=== PATIENT | female | born 1945 | race Hispanic/Latino ===

== ENCOUNTER 2018-01-01 09:40 | Emergency (ER) | payer MEDICARE ==
[2018-01-01] MEDS ORDERED: IBUPROFEN 100 MG/5 ML SUSP UDCUP ONE (10:26)
[2018-01-01] MEDS ORDERED: FENTANYL CITRATE PF 50 MCG/1 ML 2ML VIAL ONE (10:27)
[2018-01-01] MEDS ORDERED: DiphenhydrAMINE HCL 25 MG/10 ML ELIXIR UDCUP ONE (11:03)
== END 2018-01-01 12:24 | disposition home or self-care (01) ==
LOC: EDH 09:40
DX: S60.561A Insect bite (nonvenomous) of right hand, initial encounter (principal); Z86.73 Personal history of transient ischemic attack (TIA), and cerebral infarction without residual deficits; Z87.891 Personal history of nicotine dependence; W57.XXXA Bitten or stung by nonvenomous insect and other nonvenomous arthropods, initial encounter; Y93.89 Activity, other specified; Y92.89 Other specified places as the place of occurrence of the external cause; Y99.8 Other external cause status
CPT/HCPCS: 96372; 99283; J3010

== ENCOUNTER → 2018-06-28 | Outpatient (CLI) | payer MEDICARE ==
--- NOTE | 2018-06-28 10:30 | NUR ---
MBSS COMPLETED. +S/S OF ASPIRATION WITH THIN LIQUIDS AND DEEP PENETRATION WITH NECTAR-THICK LIQUIDS. RECOMMEND MECHANICAL SOFT/GROUND, HONEY-THICK LIQUIDS; PILLS CRUSHED WITH APPLESAUCE. PATIENT INFORMATION: Pt IS A 72 YEAR OLD FEMALE REFERRED FOR AN MBSS SECONDARY TO DISLODGING OF PEG TUBE WITH HISTORY OF DYSPHAGIA ON MODIFIED DIET. Pt AAOX3 AND SERVED THE PRIMARY INFORMANT FOR MEDICAL AND SOCIAL HISTORY. Pt REPORTS THAT SHE ACCIDENTLY PULLED OUT PEG TUBE DAYS AGO, BUT WAS ALREADY EATING BY MOUTH FOR A FEW MONTHS ON A PUREED, HONEY-THICK LIQUID DIET. SHE WAS ONLY PUTTING MEDICATIONS DOWN THE PEG TUBE. 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 RESULTING IN SILENT ASPIRATION WITH THIN LIQUIDS, DEEP PENETRATION WITH NECTAR-THICK LIQUIDS (NO COUGHING). S/S OF ASPIRATION OBSERVED: WATERY EYES, RUNNY NOSE, AND THROAT CLEAR. TRIALS: 1. TSP PUREED: STASIS IN PHARYNX CLEARED WITH RE-SWALLOW AND LIQUID WASH 2. TSP THIN LIQUIDS: ASPIRATION 3. TSP MIXED: GOOD 4. COOKIE: GOOD 5. TSP NECTAR-THICK LIQUIDS: DEEP PENETRATION 6. TSP HONEY-THICK LIQUIDS: GOOD 7. CUP SIP HONEY-THICK LIQUIDS: GOOD RECOMMENDATIONS: 1. MECHANICAL SOFT/GROUND, HONEY-THICK LIQUIDS; PILLS CRUSHED WITH APPLESAUCE. 2. COMPENSATORY STRATEGIES: *SEATED AT 90 DEGREES *SLOW RATE *ALTERNATE BITES AND SIPS *REMAIN UPRIGHT 30 MINUTES AFTER THE MEAL 3. SKILLED SPEECH THERAPY IS RECOMMENDED 2-4XWEEK TARGETING AFOREMENTIONED WEAKNESSES. INFORMATION SYSTEMS ARCHITECT EDUCATED Pt ON RISKS AND CONSEQUENCES OF ASPIRATION. INFORMATION SYSTEMS ARCHITECT DEMONSTRATED HOW TO REACH HONEY-THICK LIQUIDS. SHE VERBALIZED UNDERSTANDING AND COMPLIANCE WITH RECOMMENDATIONS. G-CODES SWALLOWING: [id number] Addendum: 06/29/18 at 0915 by DANIELITO ROBINS, [address] Amended: Links added.
== END | disposition home or self-care (01) ==
LOC: RAH 09:22
PROVIDERS: ATTEND Internal Medicine Gastroenterology
DX: K21.9 Gastro-esophageal reflux disease without esophagitis (principal)
CPT/HCPCS: G8996; G8997; G8998; 74230; 92611

== ENCOUNTER 2019-12-30 10:44 | Emergency (ER) | payer MEDICARE ==
[2019-12-30] MEDS ORDERED: ACETAMINOPHEN 325 MG TAB ONE (13:34)
== END 2019-12-30 14:21 | disposition home or self-care (01) ==
LOC: EDH 10:44
DX: S52.592A Other fractures of lower end of left radius, initial encounter for closed fracture (principal); S52.612A Displaced fracture of left ulna styloid process, initial encounter for closed fracture; E78.00 Pure hypercholesterolemia, unspecified; F31.9 Bipolar disorder, unspecified; W18.39XA Other fall on same level, initial encounter; Y93.01 Activity, walking, marching and hiking; Y92.89 Other specified places as the place of occurrence of the external cause; Y99.8 Other external cause status
CPT/HCPCS: 29125; 70450; 73110

== ENCOUNTER → 2023-05-11 | Outpatient (CLI) | payer MEDICARE | END | disposition home or self-care (01) | LOC: SHCH 09:28 | PROVIDERS: ATTEND Internal Medicine Cardiovascular Disease | DX: R94.31 Abnormal electrocardiogram [ECG] [EKG] (principal); I10 Essential (primary) hypertension | CPT/HCPCS: 93306 ==

== ENCOUNTER 2023-09-30 08:27 | Day surgery (SDC) | payer MEDICARE ==
[2023-09-27 09:33] LABS: BASOPHILS # (AUTO) 0.07 K/uL (0.00-0.20); EOSINOPHILS # (AUTO) 0.32 K/uL (0.00-0.70); EOSINOPHILS % (AUTO) 4.4 % (0.0-8.0); HEMATOCRIT 39.7 % (36-48); IMMATURE GRANULOCYTE ABSOLUTE 0.01 K/uL (0-1); LYMPHOCYTES # (AUTO) 3.4 K/uL (1.0-4.8); LYMPHOCYTES % (AUTO) 46.5 % (21.0-51.0); MEAN CORPUSCULAR HEMOGLOBIN 29.1 pg (27.0-33.0); MEAN CORPUSCULAR HGB CONC 31.2 g/dL (32.0-36.0); MEAN CORPUSCULAR VOLUME 93.2 fL (79-99); MONOCYTES # (AUTO) 0.6 K/uL (0.1-1.0); MONOCYTES % (AUTO) 7.8 % (3.0-13.0); NEUTROPHILS # (AUTO) 2.9 K/uL (1.8-7.7); NEUTROPHILS % (AUTO) 40.2 % (40.0-77.0); PLATELET COUNT (AUTO) 266 K/uL (130-400); RED BLOOD CELL COUNT(AUTO) 4.26 MIL/uL (4.00-5.50); RED CELL DISTRIBUTION WIDTH 15.1 % (11.0-15.5); WHITE BLOOD COUNT (AUTO) 7.3 K/uL (4.8-10.8)
[2023-09-27 09:37] VITALS: BP 148/61; PULSE 66; RESP 16
[2023-09-27 09:42] LABS: CREATININE 0.8 mg/dL (0.5-1.5); POTASSIUM 4.7 mmol/L (3.5-5.1)
[~2023-09-30] VITALS: Ht 157.5 cm; Wt 64.0 kg
[2023-09-30] VITALS (19 sets, daily range): BP systolic 131–169; BP diastolic 51–78; PULSE 63–76; RESP 8–18
[~2023-09-30 08:27] MED LIST: ALEN70TA80 PO; ALPR1TAB7 PO; LAMO25TA3 PO; LEVO75TA10 PO; LOSA100T59 PO; MEMA5TAB42 PO; PRAV40TA3 PO; VILA40TA2 PO
[2023-09-30] MEDS: LACTATED RINGERS 1000ML 1,000 ML IV ONE (09:28)
[2023-09-30] MEDS: CEFAZOLIN SODIUM 2 GM VIAL ONE (09:28)
[2023-09-30] MEDS ORDERED: FENTANYL CITRATE PF 50 MCG/1 ML 2ML VIAL ONE (09:46)
[2023-09-30] MEDS ORDERED: PROPOFOL 10 MG/ML 20ML VIAL IV ONE (09:46)
[2023-09-30] MEDS ORDERED: MIDAZOLAM HCL 1 MG/ML 2ML VIAL ONE (09:46)
[2023-09-30] MEDS ORDERED: LIDOCAINE PF 100MG/5ML (2%) SYRINGE 5ML ONE (09:46)
[2023-09-30] MEDS ORDERED: BUPIVACAINE/PF 0.25% 30ML VIAL IJ ONE (10:26)
[2023-09-30] MEDS ORDERED: ONDANSETRON 4MG INJ ONE (10:30)
[2023-09-30] MEDS ORDERED: DEXAMETHASONE SOD PHOSPHATE 10MG/ML 1ML VIAL ONE (10:30)
[2023-09-30] MEDS: BUPIVACAINE/PF 0.25% 30ML VIAL IJ ONE (10:34)
[2023-09-30] MEDS: LIDOCAINE HCL 1% 20 ML VIAL ONE (10:34)
[2023-09-30] MEDS ORDERED: KETOROLAC 30MG VIAL (30MG/ML) ONE (10:41)
== END 2023-09-30 13:30 | disposition home or self-care (01) ==
LOC: DAH 08:27
PROVIDERS: ATTEND Student in an Organized Health Care Education/Training Program
DX: R22.2 Localized swelling, mass and lump, trunk (principal); D36.7 Benign neoplasm of other specified sites; M79.89 Other specified soft tissue disorders; I10 Essential (primary) hypertension; F32.A Depression, unspecified; F41.9 Anxiety disorder, unspecified; Z82.3 Family history of stroke; Z87.891 Personal history of nicotine dependence; Z79.899 Other long term (current) drug therapy; Z98.890 Other specified postprocedural states
CPT/HCPCS: 80048; 85025; 36415; 21931; 88305; A6260; A4663; J7120 ×2; J3010; J1100; J0665; J2001; J2250; J2704; J2405; J1885; J0690; A4930; A4215; A4223; A4222; A4221; A4600; G0168; J3490

== ENCOUNTER → 2024-01-21 | Outpatient (CLI) | payer MEDICARE ==
[~2024-01-21] MED LIST changes: +MEMA5TAB16 PO; -MEMA5TAB42 PO
== END | disposition home or self-care (01) ==
LOC: SHCH 08:39
PROVIDERS: ATTEND Surgery
DX: I08.2 Rheumatic disorders of both aortic and tricuspid valves (principal); I25.10 Atherosclerotic heart disease of native coronary artery without angina pectoris
CPT/HCPCS: 93306

== ENCOUNTER → 2024-02-03 | Outpatient (CLI) | payer MEDICARE | END | disposition home or self-care (01) | LOC: SHCH 09:43 | PROVIDERS: ATTEND Surgery | DX: I77.9 Disorder of arteries and arterioles, unspecified (principal); Z79.899 Other long term (current) drug therapy; R07.9 Chest pain, unspecified; R42 Dizziness and giddiness; I65.23 Occlusion and stenosis of bilateral carotid arteries; Z86.73 Personal history of transient ischemic attack (TIA), and cerebral infarction without residual deficits | CPT/HCPCS: 93880 ==

== ENCOUNTER → 2024-03-27 | Outpatient (CLI) | payer MEDICARE ==
[~2024-03-27] MED LIST changes: +DiphenhydrAMINE HCL 50 MG/ML VIAL ONE; +IOHEXOL 350 MG/ML 100ML INFUS..BTL IV ONE; +Solu-medROL 125MG VIAL ONE; +metoPROLOL tartRATE 1 MG/ML 5ML VIAL IV ONE
== END | disposition home or self-care (01) ==
LOC: RAH 07:40
PROVIDERS: ATTEND Internal Medicine Cardiovascular Disease
DX: R07.9 Chest pain, unspecified (principal)
CPT/HCPCS: 75574; J1200; J3490; J2919; Q9967